=== PATIENT | male | born 1975 | race Caucasian/White ===

== ENCOUNTER 2020-12-19 13:24 | Outpatient (CLI) | payer MEDICARE, MEDICAID, SELFPAY | END 2020-12-19 13:25 | disposition home or self-care (01) | DX: H90.11 Conductive hearing loss, unilateral, right ear, with unrestricted hearing on the contralateral side (principal); H90.72 Mixed conductive and sensorineural hearing loss, unilateral, left ear, with unrestricted hearing on the contralateral side | CPT/HCPCS: 92557; 92567 ==

== ENCOUNTER 2021-11-18 09:00 | Outpatient (RCR) | payer MEDICARE, OTHER, SELFPAY | END 2021-12-15 23:59 | disposition home or self-care (01) | LOC: ANHBWCAUD 09:00 | DX: Z46.1 Encounter for fitting and adjustment of hearing aid (principal) | CPT/HCPCS: 99199; V5160; V5261 ==

== ENCOUNTER 2022-01-13 10:12 | Outpatient (RCR) | payer MEDICARE, MEDICAID, SELFPAY | END 2022-04-13 23:59 | disposition home or self-care (01) | LOC: ANHBWCAUD 10:12 | DX: Z46.1 Encounter for fitting and adjustment of hearing aid (principal) | CPT/HCPCS: 99199 ==

== ENCOUNTER 2023-04-05 06:28 | Outpatient (RCR) | payer OTHER, SELFPAY | END 2023-07-04 23:59 | disposition home or self-care (01) | LOC: ANHAUDASC 06:28 | DX: Z46.1 Encounter for fitting and adjustment of hearing aid (principal) | CPT/HCPCS: 99199 ==